=== PATIENT | female | born 1980 | race African-American/Black ===

== ENCOUNTER 2020-05-21 11:38 | Emergency (ER) | payer OTHER ==
[~2020-05-21] VITALS: Ht 170.2 cm; Wt 117.9 kg
[~2020-05-21 11:38] MED LIST: LANOLIN56 GM TOP; LORTABELXR PO; PHENERGAN 25 MG25 M1; PRENATAL; SLOW FE 160MG160 MG PO; TUCKS MEDICATE1 EAC1 TOP
[2020-05-21 11:46] VITALS: BP 141/89
[2020-05-21] MEDS ORDERED: ULTRAM 50MG TAB50 MG PO (12:06)
[2020-05-21] MEDS ORDERED: MOBIC7.5 MG PO (12:06)
== END 2020-05-21 12:34 | disposition home or self-care (01) ==
LOC: ER 11:38
DX: M25.561 Pain in right knee (principal); M79.89 Other specified soft tissue disorders; J45.909 Unspecified asthma, uncomplicated; Z98.51 Tubal ligation status; Z88.2 Allergy status to sulfonamides; Z79.899 Other long term (current) drug therapy; W01.0XXA Fall on same level from slipping, tripping and stumbling without subsequent striking against object, initial encounter; Y93.89 Activity, other specified; Y92.828 Other wilderness area as the place of occurrence of the external cause; Y99.8 Other external cause status